=== PATIENT | male | born 1950 | race Caucasian/White ===

== ENCOUNTER 2016-08-26 10:56 | Emergency (ER) | payer MEDICARE, OTHER ==
[~2016-08-26] VITALS: Ht 175.3 cm; Wt 68.0 kg
[~2016-08-26 10:56] MED LIST: ATEN100T PO; LISI-170 PO; LOVA20TA2 PO; OXYC-302 PO; TRIA1CAP3 PO
[2016-08-26 10:58] VITALS: BP 160/98
== END 2016-08-26 12:15 | disposition left against medical advice (07) ==
LOC: ED 12:09
DX: M25.552 Pain in left hip (principal); G89.29 Other chronic pain; I10 Essential (primary) hypertension
CPT/HCPCS: 99283

== ENCOUNTER 2017-05-02 13:00 | Emergency (ER) | payer MEDICARE, OTHER ==
[~2017-05-02] VITALS: Ht 175.3 cm; Wt 75.0 kg
[2017-05-02] MEDS ORDERED: FOLIC ACID 1 MG TABLET PO ONE (13:30)
[2017-05-02] MEDS ORDERED: THIAMINE 100MG TABLET PO ONE (13:30)
[2017-05-02] MEDS ORDERED: THIAMINE 100MG TABLET ONE (13:43)
[2017-05-02 13:57] LABS: ANION GAP 17 mmol/L (5-15); CALCIUM 8.2 mg/dL (8.5-10.1); CHLORIDE 103 mmol/L (98-107); CREATININE 0.91 mg/dL (0.7-1.3)
[2017-05-02 15:40] VITALS: BP 148/81
== END 2017-05-02 18:03 | disposition home or self-care (01) ==
LOC: ED 13:40
DX: F10.220 Alcohol dependence with intoxication, uncomplicated (principal); E78.00 Pure hypercholesterolemia, unspecified; I10 Essential (primary) hypertension
CPT/HCPCS: 36415; 80048; 83735; 99284

== ENCOUNTER 2017-11-01 21:09 | Emergency (ER) | payer MEDICARE, OTHER ==
[~2017-11-01] VITALS: Ht 175.3 cm; Wt 74.0 kg
[2017-11-01 21:12] VITALS: BP 140/81
== END 2017-11-01 22:24 | disposition left against medical advice (07) ==
LOC: ED 22:15
DX: S00.81XA Abrasion of other part of head, initial encounter (principal); F10.229 Alcohol dependence with intoxication, unspecified; F19.20 Other psychoactive substance dependence, uncomplicated; E78.00 Pure hypercholesterolemia, unspecified; F17.200 Nicotine dependence, unspecified, uncomplicated; I10 Essential (primary) hypertension; Z72.9 Problem related to lifestyle, unspecified; Z75.9 Unspecified problem related to medical facilities and other health care; W01.0XXA Fall on same level from slipping, tripping and stumbling without subsequent striking against object, initial encounter; Y93.89 Activity, other specified; Y92.89 Other specified places as the place of occurrence of the external cause; Y99.8 Other external cause status; Y90.9 Presence of alcohol in blood, level not specified
CPT/HCPCS: 99283

== ENCOUNTER 2018-06-19 12:26 | Emergency (ER) | payer MEDICARE, OTHER ==
[~2018-06-19] VITALS: Ht 175.3 cm; Wt 75.0 kg
[~2018-06-19 12:26] MED LIST changes: +ASPI-496 PO; +LISI-167 PO
--- NOTE | 2018-06-19 12:36 | NUR ---
task RN note: pt biba, report taken [facility]. pt seeking detox from ETOH, last drink was a quart of whisky this am. seen here for etoh yesterday, pt did not fill librium rx. denies any sx at this time. pt is awake, alert, oriented to person, place and situation. neuro intact. pt denies pain. bp and spo2 monitors in place. call light in reach. report given to primary RN Sara.
--- NOTE | 2018-06-19 13:52 | NUR ---
CARE FOR DC ONLY PROVIDED. PT SITTING UP ON GURNEY, NO ACUTE DISTRESS NOTED. PT ASKING ABOUT GLASSES AND WALLET. DISCUSSED WITH PT THAT HE ARRIVED VIA EMS AND THERE ARE NOT GLASSES OR A WALLET IN THE ROOM. PT REQUESTING A [facility] [facility] HOME. PROVIDED. PT LEFT AMB, GAIT STEADY. NO IV IN PLACE AT THIS TIME.
[2018-06-19 13:54] VITALS: BP 132/94
== END 2018-06-19 13:56 | disposition home or self-care (01) ==
LOC: ED 13:30
DX: F10.129 Alcohol abuse with intoxication, unspecified (principal); M19.90 Unspecified osteoarthritis, unspecified site; E78.00 Pure hypercholesterolemia, unspecified; I10 Essential (primary) hypertension; Z72.9 Problem related to lifestyle, unspecified
CPT/HCPCS: 99283

== ENCOUNTER 2019-05-03 19:10 | Inpatient (IN) | payer MEDICARE, OTHER ==
[~2019-05-03] VITALS: Ht 177.8 cm; Wt 65.0 kg
[2019-05-03] MEDS ORDERED: LORazepam 2 MG/ML, 1ML ONE ×6 (19:52→22:41)
[2019-05-03] MEDS ORDERED: SODIUM CHLORIDE FLUSH 10ML SYR IVF ONE (20:00)
[2019-05-03] MEDS ORDERED: SODIUM CHLORIDE 0.9% 1,000ML IVBOLUS ONE (20:00)
[2019-05-03] MEDS ORDERED: THIAMINE 100 MG in SODIUM CHLORIDE 0.9% 50 ML IVPB ONE (20:00)
[2019-05-03] MEDS ORDERED: ONDANSETRON 2MG/ML, 2ML IVPush ONE (20:00)
[2019-05-03] MEDS: LORazepam 2 MG/ML, 1ML IVPush PRN ×6 (20:02→22:43)
[2019-05-03] MEDS ORDERED: ONDANSETRON 2MG/ML, 2ML ONE (20:06)
[2019-05-03] MEDS ORDERED: THIAMINE 100 MG/ML, 2ML ONE (20:06)
[2019-05-03 20:11] LABS: BASOPHILS # (AUTO) 0.01 x10^3/uL (0-0.1); BASOPHILS % (AUTO) 0 % (0-1); EOSINOPHILS # (AUTO) 0.01 x10^3/uL (0-0.4); EOSINOPHILS % (AUTO) 0 % (1-7); LYMPHOCYTES # (AUTO) 0.29 x10^3/uL (1-3.4); LYMPHOCYTES % (AUTO) 4 % (22-44); MD NO; MEAN CORPUSCULAR HGB CONC 34.2 g/dL (33.2-36.2); MEAN CORPUSCULAR VOLUME 105.3 fL (81-97); MEAN PLATELET VOLUME 8.1 fL (7.4-10.4); MONOCYTES # (AUTO) 0.41 x10^3/uL (0.2-0.8); MONOCYTES % (AUTO) 5 % (2-9); NEUTROPHILS # (AUTO) 6.96 x10^3/uL (1.8-6.8); NEUTROPHILS % (AUTO) 91 % (42-75); PLATELET COUNT 104 x10^3/uL (130-400); RED BLOOD COUNT 4.17 x10^6/uL (4.38-5.82); RED CELL DISTRIBUTION WIDTH 13.4 % (9.4-14.8)
[2019-05-03 20:21] LABS: INTERNATIONAL NORMALIZED RATIO 1.01 (0.93-1.1); PROTHROMBIN TIME 10.6 Seconds (9.6-11.5)
[2019-05-03 20:23] LABS: ALANINE AMINOTRANSFERASE 54 U/L (12-78); ALBUMIN 3.8 g/dL (3.4-5.0); ANION GAP 15 mmol/L (5-15); CALCIUM 9.2 mg/dL (8.5-10.1); CHLORIDE 97 mmol/L (98-107); CREATININE 1.01 mg/dL (0.7-1.3)
[2019-05-03 20:25] LABS: ALKALINE PHOSPHATASE 146 U/L (45-117); TOTAL PROTEIN 7.9 g/dL (6.4-8.2)
--- NOTE | 2019-05-03 20:31 | NUR ---
DESAT TO 40S AFTER ATIVAN. HYPOTENSIVE ON MONITOR. EXTRA RN AND DR. WHALEY IN ROOM TO ASSDESS PT, 100% AFTER O2 APPLIED VSS FLUIDS INFUSING CURRENTLY.
--- NOTE | 2019-05-03 20:32 | NUR ---
PT MENTATING WELL, DROWSY, EASILY AROUSABLE TO VOICE.
--- NOTE | 2019-05-03 21:05 | NUR ---
PT FIDGETING, ATTMEPTING TO GET OUT OF BED. ATIVAN PER MAR. RESTING SIDE RAILS X2.
[2019-05-03] MEDS ORDERED: POTASSIUM CHLORIDE 20 MEQ TAB.ER.PRT PO ONE (21:30)
--- NOTE | 2019-05-03 21:42 | NUR ---
PT CONFUSED, TRYING TO GET OUT OF BED. [employer] SITTING W/ PT. ATIVAN PER JUL.
[2019-05-03] MEDS ORDERED: POTASSIUM CHLORIDE 40 MEQ in SODIUM CHLORIDE 0.9% 500 ML IV ONE (22:00)
--- NOTE | 2019-05-03 22:07 | NUR ---
REPORT TO DEXTER DOHERTY. 2 MG ATIVAN PER VERBAL ORDER D/T WITHDRAWALS. VSS. TECH AT BEDSIDE.
[2019-05-03] MEDS ORDERED: ONDANSETRON 2MG/ML, 2ML IV PRN (22:30)
[2019-05-03] MEDS ORDERED: LORazepam 2 MG/ML, 1ML IV PRN ×4 (22:30)
[2019-05-03] MEDS ORDERED: PLEASE ENTER HEIGHT AND WEIGHT MC SCH (23:45)
[2019-05-04] MEDS ORDERED: FOLIC ACID 1 MG TABLET PO ONE (00:08)
[2019-05-04] MEDS: LORazepam 2 MG/ML, 1ML IV PRN ×3 (02:37→05:41)
[2019-05-04 03:28] LABS: CLOSTRIDIUM DIFFICILE ANTIGEN NEGATIVE; CLOSTRIDIUM DIFFICILE TOXIN NEGATIVE (Negative)
[2019-05-04 04:00] VITALS: BP 112/66
[2019-05-04] MEDS: LORazepam 2 MG/ML, 1ML IVPush PRN ×5 (07:45→14:28)
[2019-05-04 08:09] LABS: ALBUMIN 3.1 g/dL (3.4-5.0); ANION GAP 8 mmol/L (5-15); CALCIUM 8.4 mg/dL (8.5-10.1); CHLORIDE 106 mmol/L (98-107)
[2019-05-04 08:13] LABS: ALANINE AMINOTRANSFERASE 48 U/L (12-78); ALKALINE PHOSPHATASE 112 U/L (45-117); BILIRUBIN,TOTAL 0.9 mg/dL (0.2-1.0); CREATININE 0.65 mg/dL (0.7-1.3); TOTAL PROTEIN 6.6 g/dL (6.4-8.2)
[2019-05-04] MEDS ORDERED: CHLORDIAZEPOXIDE 10 MG CAPSULE PO SCH (09:00)
[2019-05-04] MEDS: MULTIVITAMINS/MINERALS TABLET PO SCH (09:11)
[2019-05-04] MEDS ORDERED: THIAMINE 200 MG in DEXTROSE 5% 50 ML IVPB SCH (10:00)
[2019-05-04] MEDS: HEPARIN 5,000 UNITS/ML, 1ML SQ SCH ×2 (10:22→21:08)
[2019-05-04] MEDS ORDERED: PHARMACY INSTRUCTION MC PRN ×4 (15:00)
[2019-05-04] MEDS ORDERED: SODIUM CHLORIDE 0.9% IVPB ONE (15:30)
[2019-05-04] MEDS ORDERED: PHENOBARBITAL SODIUM IVPB ONE (15:30)
[2019-05-05 04:00] VITALS: BP 129/85
[2019-05-05] MEDS ORDERED: PHENOBARBITAL SODIUM IVPB ONE (04:00)
[2019-05-05] MEDS ORDERED: SODIUM CHLORIDE 0.9% IVPB ONE (04:00)
[2019-05-05 04:58] LABS: ANION GAP 7 mmol/L (5-15); CALCIUM 8.4 mg/dL (8.5-10.1); CHLORIDE 106 mmol/L (98-107)
[2019-05-05 05:10] LABS: CREATININE 0.47 mg/dL (0.7-1.3)
[2019-05-05] MEDS ORDERED: POTASSIUM CHLORIDE 40 MEQ in SODIUM CHLORIDE 0.9% 500 ML IV ONE (05:30)
[2019-05-05] MEDS: HEPARIN 5,000 UNITS/ML, 1ML SQ SCH ×3 (05:33→22:46)
[2019-05-05] MEDS ORDERED: THIAMINE 100 MG in DEXTROSE 5% 50 ML IVPB SCH (09:00)
[2019-05-05] MEDS: MULTIVITAMINS/MINERALS TABLET PO SCH (09:54)
[2019-05-05] MEDS ORDERED: THIAMINE 100MG TABLET ONE (10:10)
[2019-05-05] MEDS: THIAMINE 100MG TABLET PO SCH (10:29)
[2019-05-05] MEDS: PHENOBARBITAL 20 MG/5 ML ORAL SOL PO SCH ×2 (10:50→22:46)
[2019-05-05] MEDS ORDERED: POTASSIUM CHLORIDE 20 MEQ TAB.ER.PRT PO ONE (12:30)
[2019-05-05 14:07] LABS: ANION GAP 5 mmol/L (5-15); CALCIUM 8.7 mg/dL (8.5-10.1); CHLORIDE 107 mmol/L (98-107); CREATININE 0.55 mg/dL (0.7-1.3)
[2019-05-05 20:50] VITALS: BP 140/86
[2019-05-06 00:05] VITALS: BP 122/75
[2019-05-06 05:40] LABS: CHLORIDE 103 mmol/L (98-107)
[2019-05-06 05:44] LABS: ANION GAP 8 mmol/L (5-15); CALCIUM 8.5 mg/dL (8.5-10.1); CREATININE 0.61 mg/dL (0.7-1.3)
[2019-05-06] MEDS ORDERED: POTASSIUM CHLORIDE 20 MEQ TAB.ER.PRT PO ONE (06:30)
[2019-05-06] MEDS ORDERED: POTASSIUM CHLORIDE 40 MEQ in SODIUM CHLORIDE 0.9% 500 ML IV ONE (06:30)
[2019-05-06] MEDS ORDERED: MAGNESIUM SULFATE PMX 2GM/50ML 50 ML IV ONE (06:30)
[2019-05-06 07:26] VITALS: BP 151/89
[2019-05-06] MEDS: HEPARIN 5,000 UNITS/ML, 1ML SQ SCH ×3 (07:40→22:15)
[2019-05-06] MEDS: MULTIVITAMINS/MINERALS TABLET PO SCH (09:04)
[2019-05-06] MEDS: THIAMINE 100MG TABLET PO SCH (09:04)
[2019-05-06] MEDS: PHENOBARBITAL 20 MG/5 ML ORAL SOL PO SCH ×2 (10:14→21:42)
[2019-05-06] MEDS ORDERED: THIAMINE 100MG TABLET PO SCH (11:00)
[2019-05-06 14:27] VITALS: BP 155/84
[2019-05-06 17:07] VITALS: BP 158/89
[2019-05-06] MEDS: METOPROLOL TARTRATE 25 MG TABLET PO SCH (17:25)
[2019-05-06 18:56] VITALS: BP 148/88
[2019-05-06] MEDS ORDERED: NICOTINE 14MG/24 HR PATCH.TD24 ONE (22:59)
[2019-05-06] MEDS: NICOTINE 14MG/24 HR PATCH.TD24 TD SCH (23:02)
[2019-05-07 00:28] VITALS: BP 150/87
[2019-05-07 05:30] LABS: ANION GAP 7 mmol/L (5-15); CALCIUM 8.2 mg/dL (8.5-10.1); CHLORIDE 102 mmol/L (98-107); CREATININE 0.56 mg/dL (0.7-1.3)
[2019-05-07] MEDS: HEPARIN 5,000 UNITS/ML, 1ML SQ SCH ×3 (05:54→23:29)
[2019-05-07] MEDS: METOPROLOL TARTRATE 25 MG TABLET PO SCH ×2 (05:54→17:22)
[2019-05-07] MEDS ORDERED: POTASSIUM CHLORIDE 20 MEQ in SODIUM CHLORIDE 0.9% 250 ML IV ONE (06:30)
[2019-05-07] MEDS: MULTIVITAMINS/MINERALS TABLET PO SCH (08:46)
[2019-05-07] MEDS: THIAMINE 100MG TABLET PO SCH (08:46)
[2019-05-07] MEDS: POTASSIUM CHLORIDE 20 MEQ TAB.ER.PRT PO SCH ×2 (08:47→17:22)
[2019-05-07 08:50] VITALS: BP 135/89
[2019-05-07] MEDS: PHENOBARBITAL 20 MG/5 ML ORAL SOL PO SCH ×2 (11:56→23:29)
[2019-05-07 15:03] VITALS: BP 164/94
[2019-05-07 18:46] VITALS: BP 119/76
[2019-05-07] MEDS ORDERED: ZIPRASIDONE 20 MG INJ IM ONE ×2 (19:49→20:00)
[2019-05-07] MEDS: NICOTINE 14MG/24 HR PATCH.TD24 TD SCH (20:07)
[2019-05-08] MEDS ORDERED: ZIPRASIDONE 20 MG INJ IM ONE (01:00)
[2019-05-08] MEDS: METOPROLOL TARTRATE 25 MG TABLET PO SCH ×2 (06:28→17:06)
[2019-05-08 08:31] LABS: ANION GAP 7 mmol/L (5-15); CHLORIDE 107 mmol/L (98-107); CREATININE 0.57 mg/dL (0.7-1.3)
[2019-05-08 09:31] VITALS: BP 128/85
[2019-05-08] MEDS: QUETIAPINE 25MG TABLET PO SCH ×2 (10:05→20:36)
[2019-05-08] MEDS: HEPARIN 5,000 UNITS/ML, 1ML SQ SCH ×2 (10:05→17:06)
[2019-05-08] MEDS: POTASSIUM CHLORIDE 20 MEQ TAB.ER.PRT PO SCH ×2 (10:05→17:06)
[2019-05-08] MEDS: MULTIVITAMINS/MINERALS TABLET PO SCH (10:05)
[2019-05-08] MEDS: THIAMINE 100MG TABLET PO SCH (10:05)
[2019-05-08] MEDS: PHENOBARBITAL 20 MG/5 ML ORAL SOL PO SCH (11:00)
[2019-05-08 13:12] VITALS: BP 125/83
[2019-05-08 19:50] VITALS: BP 178/104
[2019-05-08] MEDS: NICOTINE 14MG/24 HR PATCH.TD24 TD SCH (20:36)
[2019-05-08 22:14] VITALS: BP 149/80
[2019-05-09] MEDS: HEPARIN 5,000 UNITS/ML, 1ML SQ SCH ×2 (00:44→08:38)
[2019-05-09 00:45] VITALS: BP 151/90
[2019-05-09] MEDS: METOPROLOL TARTRATE 25 MG TABLET PO SCH (05:49)
[2019-05-09 07:19] LABS: CALCIUM 9.6 mg/dL (8.5-10.1); CHLORIDE 106 mmol/L (98-107)
[2019-05-09 07:23] LABS: ANION GAP 9 mmol/L (5-15); CREATININE 0.67 mg/dL (0.7-1.3)
[2019-05-09 07:29] LABS: MEAN CORPUSCULAR HEMOGLOBIN 35.6 pg (27.5-34.5); MEAN CORPUSCULAR VOLUME 107.9 fL (81-97); MEAN PLATELET VOLUME 9.5 fL (7.4-10.4); PLATELET COUNT 142 x10^3/uL (130-400); RED BLOOD COUNT 3.85 x10^6/uL (4.38-5.82); RED CELL DISTRIBUTION WIDTH 13.6 % (9.4-14.8)
[2019-05-09] MEDS ORDERED: THIA100T67 PO (07:49)
[2019-05-09] MEDS ORDERED: NICO-486 TD (07:49)
[2019-05-09] MEDS ORDERED: QUET25TA7 PO (07:49)
[2019-05-09] MEDS ORDERED: METO50TA82 PO (07:49)
[2019-05-09] MEDS ORDERED: POTA20TA6 PO (07:49)
[2019-05-09] MEDS ORDERED: MULT-484 PO (07:49)
[2019-05-09 08:22] VITALS: BP 130/77
[2019-05-09] MEDS: POTASSIUM CHLORIDE 20 MEQ TAB.ER.PRT PO SCH (08:38)
[2019-05-09] MEDS: THIAMINE 100MG TABLET PO SCH (08:38)
[2019-05-09] MEDS: QUETIAPINE 25MG TABLET PO SCH (08:38)
[2019-05-09] MEDS: MULTIVITAMINS/MINERALS TABLET PO SCH (08:38)
[2019-05-09 08:44] LABS: BASOPHILS # (AUTO) 0.02 x10^3/uL (0-0.1); BASOPHILS % (AUTO) 0 % (0-1); EOSINOPHILS # (AUTO) 0.14 x10^3/uL (0-0.4); EOSINOPHILS % (AUTO) 2 % (1-7); LYMPHOCYTES # (AUTO) 1.16 x10^3/uL (1-3.4); LYMPHOCYTES % (AUTO) 19 % (22-44); MD SCAN; MONOCYTES # (AUTO) 0.85 x10^3/uL (0.2-0.8); MONOCYTES % (AUTO) 14 % (2-9); NEUTROPHILS # (AUTO) 4.03 x10^3/uL (1.8-6.8); NEUTROPHILS % (AUTO) 65 % (42-75)
[2019-05-09] MEDS ORDERED: PHENOBARBITAL 20 MG/5 ML ORAL SOL PO SCH (11:00)
[2019-05-09 14:47] VITALS: BP 134/75
[2019-05-09] MEDS ORDERED: METOPROLOL TARTRATE 50 MG TABLET PO SCH (18:00)
[2019-05-10] MEDS ORDERED: PHENOBARBITAL 20 MG/5 ML ORAL SOL PO SCH (11:00)
== END 2019-05-09 17:00 | DRG 101 ==
LOC: ED 22:45 → EDIP 22:50 → CCU 22:52 → 4EST 05-05 12:02
PROVIDERS: ADMIT Internal Medicine; ATTEND Hospitalist
DX: G40.509 Epileptic seizures related to external causes, not intractable, without status epilepticus (principal); F10.231 Alcohol dependence with withdrawal delirium; R44.3 Hallucinations, unspecified; F05 Delirium due to known physiological condition; K70.9 Alcoholic liver disease, unspecified; I10 Essential (primary) hypertension; N40.0 Benign prostatic hyperplasia without lower urinary tract symptoms; D69.6 Thrombocytopenia, unspecified; D75.89 Other specified diseases of blood and blood-forming organs; E78.00 Pure hypercholesterolemia, unspecified; E87.6 Hypokalemia; F12.90 Cannabis use, unspecified, uncomplicated; F17.210 Nicotine dependence, cigarettes, uncomplicated; Z85.46 Personal history of malignant neoplasm of prostate
CPT/HCPCS: 36415; 70450; 80048; 80053; 80307; 83036; 83735; 84100; 84132; 85025; 85610; 85730; 87081; 87324; 93005; 99291; G0378; J1644; J2405; J2560; J3411; J3480; J3486; 92523-GN; J2060; J3475; J7030; J7040; J7050

== ENCOUNTER 2021-01-31 18:03 | Emergency (ER) | payer MEDICARE, OTHER ==
[~2021-01-31] VITALS: Ht 175.3 cm; Wt 90.0 kg
[2021-01-31 18:09] VITALS: BP 163/87
== END 2021-01-31 18:21 | disposition left against medical advice (07) ==
LOC: ED 18:13
DX: K08.89 Other specified disorders of teeth and supporting structures (principal); Z53.21 Procedure and treatment not carried out due to patient leaving prior to being seen by health care provider